=== PATIENT | female | born 1970 | race Hispanic/Latino ===

== ENCOUNTER 2018-12-28 14:14 | Inpatient (IN) | payer BC ==
[2018-12-28 14:32] VITALS: BMI 26.8
--- NOTE | 2018-12-28 14:33 | C.PDOC ---
History Of Present Illness 48 year old female presents to the ED for evaluation of chest pressure which began while at work prior to arrival. Patient describes a midsternal heaviness. She received Nitroglycerin and Aspirin prior to arrival, with improvement in her symptoms. Patient denies fever, chills or history of previous stress test. Patient admits to social history of smoking. Time Seen by Provider: 12/28/18 14:15 Chief Complaint (Nursing): Chest Pain History Per: Patient History/Exam Limitations: no limitations Onset/Duration Of Symptoms: Hrs Current Symptoms Are (Timing): Still Present Quality: Pressure, "Pain" Additional History Per: Patient Past Medical History Reviewed: Historical Data, Nursing Documentation, Vital Signs - Medical History PMH: No Chronic Diseases Surgical History: No Surg Hx Family History: States: Unknown Family Hx - Social History Hx Tobacco Use: Yes Hx Alcohol Use: Yes Hx Substance Use: No - Immunization History Hx Tetanus Toxoid Vaccination: No Hx Influenza Vaccination: No Hx Pneumococcal Vaccination: No Review Of Systems Constitutional: Negative for: Fever, Chills Cardiovascular: Positive for: Other (chest pressure, mid-sternal heaviness ) Physical Exam - Physical Exam Appears: Non-toxic, No Acute Distress Skin: Normal Color, Warm, Dry Head: Atraumatic, Normacephalic Eye(s): bilateral: Normal Inspection Oral Mucosa: Moist Neck: Supple Chest: Symmetrical, No Deformity, No Tenderness Cardiovascular: Rhythm Regular, No Murmur Respiratory: Normal Breath Sounds, No Rales, No Rhonchi, No Wheezing Extremity: Normal ROM, Capillary Refill (less than 2 seconds ) Neurological/Psych: Oriented x3, Normal Speech, Normal Cognition ED Course And Treatment - Laboratory Results Result Diagrams: 12/28/18 14:33 12/28/18 14:33 ECG: Interpreted By Me, Viewed By Me ECG Rhythm: Sinus Rhythm Interpretation Of ECG: ST elevation in lateral leads, reciprocal depressions. Rate From EC O2 Sat by Pulse Oximetry: 99 (on RA) Pulse Ox Interpretation: Normal Medical Decision Making Medical Decision Making: Progress: Bloodwork, urinalysis, CXR, EKG ordered and reviewed. Brilinta PO and Heparin IVP given. ems ekg ?lateral stemi with reciprocal changes. ekgs sent to dr alfaro. requests code heart activation. 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 brilinta and heparin iniated. Disposition - Disposition Disposition: HOSPITALIZED Disposition Time: 16:00 Condition: STABLE - Clinical Impression Clinical Impression: STEMI (ST elevation myocardial infarction) - Scribe Statement The provider has reviewed the documentation as recorded by the Scribe (Melani Mercer) Provider Attestation: All medical record entries made by the Scribe were at my direction and personally dictated by me. I have reviewed the chart and agree that the record accurately reflects my personal performance of the history, physical exam, medical decision making, and the department course for this patient. I have also personally directed, reviewed, and agree with the discharge instructions and di sposition. Decision To Admit - Pt Status Changed To: Hospital Disposition Of: Inpatient - Admit Certification Admit to Inpatient:: After my assessment, the patient will require hospit alization for at least two midnights. This is because of the severity of symptoms shown, intensity of services needed, and/or the medical risk in this patient being treated as an outpatient. - InPatient: Physician Admission Certification: I certify that this patient requires 2 or more midnights of care for the following reason:: stemi needs cath - . Bed Request Type: ICU Admitting Physician: Carlos Manuel Alfaro Patient Diagnosis: STEMI (ST elevation myocardial infarction)
[2018-12-28 14:37] LABS: BASO % 0.5 % (0.0-2.0); EOS # 0.2 K/uL (0.0-0.7); EOS % 2.3 % (0.0-4.0); LYMPH % 24.4 % (20.0-40.0); MEAN CELL VOLUME 93.4 fL (81.0-99.0); MEAN CORPUSCULAR HEMOGLOBIN 30.9 pg (27.0-31.0); MEAN CORPUSCULAR HGB CONC 33.1 g/dL (33.0-37.0); MEAN PLATELET VOLUME 8.6 fL (7.2-11.7); MONO # 0.7 K/uL (0.0-0.8); MONO % 8.6 % (0.0-10.0); NEUT # 5.2 K/uL (1.8-7.0); NEUT % 64.2 % (50.0-75.0); RBC 4.53 Mil/uL (3.80-5.20); RED CELL DISTRIBUTION WIDTH 12.9 % (11.5-14.5); WHITE BLOOD COUNT 8.1 K/uL (4.8-10.8)
--- NOTE | 2018-12-28 14:42 | RAD ---
Date of service: 12/28/2018 PROCEDURE: CHEST RADIOGRAPH, 1 VIEW HISTORY: chest pain COMPARISON: None available. FINDINGS: LUNGS: The lungs are well inflated and clear. PLEURA: No pneumothorax or pleural effusion. CARDIOVASCULAR: The heart is normal in size. No aortic atherosclerotic calcifications present. OSSEOUS STRUCTURES: Within normal limits for the patient's age. VISUALIZED UPPER ABDOMEN: Normal. OTHER FINDINGS: None. IMPRESSION: No active pulmonary disease.
[2018-12-28 14:46] LABS: PROTHROMBIN TIME 11.2 SECONDS (9.7-12.2)
[2018-12-28] MEDS ORDERED: Iodixanol 320 MG/ML 200 ML BOTTLE IV ONE (14:48)
[2018-12-28] MEDS ORDERED: Midazolam 2 MG/2 ML VIAL ONE (15:11)
--- NOTE | 2018-12-28 15:12 | CP.PCM.CON ---
<José Miguel Navarro - Last Filed: 12/28/18 20:10> History of Present Illness - History of Present Illness History of Present Illness: ICU Consult Note for Dr. Conn This is a 48 y o female with no remarkable PMhx who presented as [facility] for eval of chest pressure which began while she was at work this am. Denies any inciting factors, states she was only stressed about typical things at work. Described pain as "heaviness", localized to the mid-sternum. States that this is the first time she has ever had symptoms like this before. Denies prior hx of NM or TIA/stroke. Denied at time fever, chills, sob, n/v/d/c, abd pain, urinary complaints, or other symptoms. Reason for ICU consult was for monitoring post- cardiac cath procedure. Cardiac cath performed by Dr. Ybarra demonstrated clean coronary arteries, recommends medical management. Pt denies any symptoms currently, states chest pain has resolved completely. PMhx: none PSurgHx: C/s x1 Allergies: NKDA Home meds: none Fam hx: Hx heart disease in mom and dad Soc hx: Quit smoking 17 y ago, uses E-cigarettes daily. Admits to drinking 2 glasses/wine daily. Denies illicit drug use. Review of Systems - Constitutional Constitutional: absent: Chills, Fatigue, Fever - Cardiovascular Cardiovascular: absent: Chest Pain, Diaphoresis, Dyspnea on Exertion, Pain Radiating to Arm/Neck/Jaw, Leg Edema, Palpitations, Pedal Edema, Syncope - Respiratory Respiratory: absent: Cough, Wheezing - Gastrointestinal Gastrointestinal: absent: Abdominal Pain, Constipation, Diarrhea, Nausea, Vomiting - Genitourinary Genitourinary: absent: Difficulty Urinating, Dysuria Past Patient History - Infectious Disease Hx of Infectious Diseases: None - Past Social History Smoking Status: vape - PSYCHIATRIC Hx Substance Use: No - ANESTHESIA Hx Anesthesia: No Meds Allergies/Adverse Reactions: Allergies Allergy/AdvReac Type Severity Reaction Status Date / Time No Known Allergies Allergy Verified 12/28/18 14:23 Physical Exam - Constitutional Appears: Non-toxic, No Acute Distress - Head Exam Head Exam: ATRAUMATIC, NORMOCEPHALIC - Eye Exam Eye Exam: EOMI, Normal appearance, PERRL - ENT Exam ENT Exam: Mucous Membranes Moist - Respiratory Exam Respiratory Exam: Clear to Auscultation Bilateral, NORMAL BREATHING PATTERN. absent: Rales, Rhonchi, Wheezes - Cardiovascular Exam Cardiovascular Exam: REGULAR RHYTHM, +S1, +S2. absent: Gallop, Rubs, Systolic Murmur - GI/Abdominal Exam GI & Abdominal Exam: Normal Bowel Sounds, Soft. absent: Distended, Organomegaly, Tenderness - Extremities Exam Extremities exam: Positive for: full ROM, normal capillary refill, normal inspection, pedal pulses present. Negative for: pedal edema Additional comments: Catheter site in R groin c/d/i, no active bleeding noted - Neurological Exam Neurological exam: Alert, CN II-XII Intact, Oriented x3 - Skin Skin Exam: Dry, Intact, Warm Results - Vital Signs Recent Vital Signs: Last Vital Signs Temp 97.9 F 12/28/18 14:42 Pulse 64 12/28/18 14:42 Resp 18 12/28/18 14:42 BP 192/84 H 12/28/18 14:42 Pulse Ox 99 12/28/18 14:42 - Labs Result Diagrams: 12/28/18 14:33 12/28/18 14:33 Labs: Laboratory Results - last 24 hr 12/28/18 12/28/18 12/28/18 14:33 14:33 14:33 WBC 8.1 RBC 4.53 Hgb 14.0 Hct 42.3 MCV 93.4 MCH 30.9 MCHC 33.1 RDW 12.9 Plt Count 299 MPV 8.6 Neut % (Auto) 64.2 Lymph % (Auto) 24.4 [place] % (Auto) 8.6 Eos % (Auto) 2.3 Baso % (Auto) 0.5 Neut # (Auto) 5.2 Lymph # (Auto) 2.0 [place] # (Auto) 0.7 Eos # (Auto) 0.2 Baso # (Auto) 0.0 PT 11.2 INR 1.0 APTT 27 Troponin I 0.1120 Assessment & Plan - Assessment and Plan (Free Text) Assessment: This is a 48 y o female with no remarkable PMhx who presented as [facility] for eval of chest pressure which began while she was at work this am. Reason for ICU consult was for monitoring post-cardiac cath procedure. Cardiac cath performed by Dr. Ybarra demonstrated clean coronary arteries, recommends medical management. Plan: -EMS EKG was reported as ?lateral STEMI, reviewed by Dr. Ybarra, who proceeded to activate [facility]. Pt s/p cath today that demonstrated clean coronary arterties. Hypertensive otherwise hemodynamically stable -Pt does not meet criteria for ICU admission at this time -ASA, Enalapril added for medical management of STEMI/angina -Further recommendations as per Cardiology and primary team -Please reconsult if needed Pt seen, examined with, and plan discussed with Dr. Conn, attending physician. José Miguel Navarro DO PGY-1, Certified Indoor Environmentalist Pager #[phone] <José Miguel Conn - Last Filed: 12/29/18 16:47> Results - Vital Signs Recent Vital Signs: Last Vital Signs Temp 98.2 F 12/29/18 12:00 Pulse 93 H 12/29/18 13:33 Resp 14 12/29/18 13:33 BP 130/53 L 12/29/18 14:19 Pulse Ox 100 12/29/18 13:30 - Labs Result Diagrams: 12/29/18 06:25 12/29/18 06:20 Labs: Laboratory Results - last 24 hr 12/29/18 12/29/18 12/29/18 06:20 06:25 06:25 WBC 8.8 RBC 4.25 Hgb 13.0 Hct 38.6 MCV 90.9 D MCH 30.5 MCHC 33.6 RDW 12.6 Plt Count 285 MPV 8.9 Neut % (Auto) 73.6 Lymph % (Auto) 15.0 L [place] % (Auto) 9.3 Eos % (Auto) 1.7 Baso % (Auto) 0.4 Neut # (Auto) 6.5 Lymph # (Auto) 1.3 [place] # (Auto) 0.8 Eos # (Auto) 0.1 Baso # (Auto) 0.0 Sodium 135 Potassium 4.1 Chloride 102 Carbon Dioxide 27 Anion Gap 10 BUN 11 Creatinine 0.7 Est GFR ( Amer) > 60 Est GFR (Non-Af Amer) > 60 Random Glucose 83 D Hemoglobin A1c 5.0 Calcium 8.9 Phosphorus 3.4 Magnesium 1.9 Total Bilirubin 0.8 AST 50 H D ALT 9 Alkaline Phosphatase 55 Total Protein 6.4 Albumin 4.1 Globulin 2.3 Albumin/Globulin Ratio 1.8 Triglycerides 75 Cholesterol 173 LDL Cholesterol Direct 85 HDL Cholesterol 84 H Attending/Attestation - Attestation I have personally seen and examined this patient.: Yes I have fully participated in the care of the patient.: Yes I have reviewed all pertinent clinical information: Yes Notes (Text): 12/28/18 16:46 I have seen and examined the patient. Medical records, lab studies, and imaging were reviewed by me and a management plan was formulated on multidisciplinary rounds with resident Dr. Navarro. I agree with their documented assessment and plan. Patient was clinically stable and chest pain free, s/p cardiac cath which found no CAD. Her chest pain may have been related to her uncontrolled hypertension. Started on enalapril. Clinically stable for downgrade to telemetry floors. Critical Care Time 35 minutes. Multi-disciplinary rounds were performed with house staff, nursing, speech therapy, respiratory therapy, pharmacy and nutrition with integrated input from the primary team/attending and other consulting services. The documented time is cumulative and includes review of patient data/exams/labs/chart review and examination of the patient on rounds and throughout the day; time is exclusive of any procedures or teaching time.
[2018-12-28 15:14] LABS: ALBUMIN 4.7 g/dL (3.5-5.0); ALT/SGPT 9 U/L (9-52); AST/SGOT 36 U/L (14-36); B-TYPE NATRIURETIC PEPTIDE 87.8 pg/mL (0-900); BLOOD UREA NITROGEN 15 mg/dL (7-17); CALCIUM 9.6 mg/dl (8.6-10.4); GFR NON-AFRICAN AMERICAN > 60
[2018-12-28] MEDS ORDERED: Labetalol 5mg/ml (4ml) ONE (15:15)
[2018-12-28] MEDS ORDERED: Iodixanol 320 MG/ML 100 ML BOTTLE IV ONE (15:20)
--- NOTE | 2018-12-28 19:37 | CP.PCM.HP ---
History of Present Illness - History of Present Illness History of Present Illness: 48 years old woman with no previous cardiac history, developed retrosternal chest pain. Presented to [facility] ER EKG shows normal sinus rhythm with no any ST-T changes. 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 There is no history of hypertension hypercholesterolemia in the past Present on Admission - Present on Admission Any Indicators Present on Admission: No Review of Systems - Review of Systems All systems: reviewed and no additional remarkable complaints except (atypical retrosternal chest pain) Past Patient History - Infectious Disease Hx of Infectious Diseases: None - Past Medical History & Family History Past Medical History?: No - Past Social History Smoking Status: Former Smoker - MUSCULOSKELETAL/RHEUMATOLOGICAL Hx Falls: No - PSYCHIATRIC Hx Substance Use: No - SURGICAL HISTORY Hx Surgeries: Yes Hx Section: Yes - ANESTHESIA Hx Anesthesia: Yes Hx Anesthesia Reactions: No Meds Allergies/Adverse Reactions: Allergies Allergy/AdvReac Type Severity Reaction Status Date / Time No Known Allergies Allergy Verified 12/28/18 14:23 Physical Exam - Constitutional Appears: Well - Head Exam Head Exam: ATRAUMATIC, NORMAL INSPECTION, NORMOCEPHALIC - Eye Exam Eye Exam: EOMI, Normal appearance, PERRL - Neck Exam Neck exam: Positive for: Normal Inspection - Respiratory Exam Respiratory Exam: Clear to Auscultation Bilateral, NORMAL BREATHING PATTERN - Cardiovascular Exam Cardiovascular Exam: REGULAR RHYTHM - GI/Abdominal Exam GI & Abdominal Exam: Normal Bowel Sounds, Soft. absent: Tenderness - Extremities Exam Extremities exam: Positive for: normal inspection - Neurological Exam Neurological exam: Alert, CN II-XII Intact, Normal Gait, Oriented x3, Reflexes Normal Results - Vital Signs Recent Vital Signs: Last Vital Signs Temp 97.9 F 12/28/18 14:42 Pulse 61 12/28/18 18:40 Resp 13 12/28/18 18:40 BP 128/89 12/28/18 18:31 Pulse Ox 100 12/28/18 18:40 - Labs Result Diagrams: 12/29/18 06:25 12/29/18 06:20 Labs: Laboratory Results - last 24 hr 12/28/18 12/28/18 12/28/18 14:33 14:33 14:33 WBC 8.1 RBC 4.53 Hgb 14.0 Hct 42.3 MCV 93.4 MCH 30.9 MCHC 33.1 RDW 12.9 Plt Count 299 MPV 8.6 Neut % (Auto) 64.2 Lymph % (Auto) 24.4 [place] % (Auto) 8.6 Eos % (Auto) 2.3 Baso % (Auto) 0.5 Neut # (Auto) 5.2 Lymph # (Auto) 2.0 [place] # (Auto) 0.7 Eos # (Auto) 0.2 Baso # (Auto) 0.0 PT 11.2 INR 1.0 APTT 27 Sodium 136 Potassium 4.2 Chloride 102 Carbon Dioxide 24 Anion Gap 14 BUN 15 Creatinine 0.8 Est GFR ( Amer) > 60 Est GFR (Non-Af Amer) > 60 Random Glucose 106 H Calcium 9.6 Total Bilirubin 0.5 AST 36 ALT 9 Alkaline Phosphatase 72 Troponin I 0.1120 NT-Pro-B Natriuret Pep 87.8 Total Protein 7.0 Albumin 4.7 Globulin 2.3 Albumin/Globulin Ratio 2.0 Assessment & Plan (1) Atypical chest pain Status: Acute
--- NOTE | 2018-12-28 21:24 | CATH ---
APPROVED REPORT Date of service: 12/28/2018 Procedure(s) performed: Cardiac catheterization. HISTORY The patient is a 48 year-old female with a history of : hypertension. INDICATION The indication(s) include : atypical chest pain , abnormal ECG. CASE TECHNIQUE The patient was brought emergently to the Cardiac Catheterization Laboratory in a fasting state and was prepped and draped in a sterile manner. The right femoral groin was infiltrated with 2% Lidocaine subcutaneous anesthesia. A 6 F sheath was inserted into the right femoral artery without difficulty. Coronary angiography was performed using coronary diagnostic catheters. The left coronary system was accessed and visualized with a 6 F XB3.0 catheter. The right coronary system was accessed and visualized with a Diagnostic catheter. The left ventricle was accessed and visualized with a 6 F Pig tail. catheter. Left ventriculogram was performed in PAINTING projection. Closure device was deployed with a 6 Fr Angioseal without any complications. The patient tolerated the procedure well and there were no complications associated with the procedure. Vessel Analysis The patient's coronary anatomy is left dominant. The left main coronary artery is a medium size vessel with intimal irregularities and without significant stenosis. There is a 0% stenosis . The left main bifurcates to the left anterior descending and circumflex. The left anterior descending artery is a medium size vessel without significant stenosis. The circumflex artery is a medium size vessel without significant stenosis. The right coronary artery is a medium size vessel with intimal irregularities and without significant stenosis. Left Ventricle The left ventricle is normal in size with normal contractility. The left ventricular ejection fraction is estimated to be 60%. The left ventricular end diastolic pressure is 24 mmHg. There was no gradient across the aortic valve upon pullback. Conclusion Normal very tortuous coronaries. Normal LV systolic function. Recommendations Cardiac Risk Reduction Program
[2018-12-28] MEDS: Sodium Chloride 0.45% 250 ML IV SCH (21:30)
[2018-12-29] MEDS: Sodium Chloride 0.45% 250 ML IV SCH (05:33)
[2018-12-29 06:35] LABS: BASO % 0.4 % (0.0-2.0); EOS # 0.1 K/uL (0.0-0.7); EOS % 1.7 % (0.0-4.0); LYMPH # 1.3 K/uL (1.0-4.3); MEAN CELL VOLUME 90.9 fL (81.0-99.0); MEAN CORPUSCULAR HEMOGLOBIN 30.5 pg (27.0-31.0); MEAN CORPUSCULAR HGB CONC 33.6 g/dL (33.0-37.0); MEAN PLATELET VOLUME 8.9 fL (7.2-11.7); MONO # 0.8 K/uL (0.0-0.8); MONO % 9.3 % (0.0-10.0); NEUT # 6.5 K/uL (1.8-7.0); NEUT % 73.6 % (50.0-75.0); NRBC % 0.1 % (0.0-2.0); RBC 4.25 Mil/uL (3.80-5.20); RED CELL DISTRIBUTION WIDTH 12.6 % (11.5-14.5); WHITE BLOOD COUNT 8.8 K/uL (4.8-10.8)
[2018-12-29 06:51] LABS: LDL CHOLESTEROL 85 mg/dL (0-129)
[2018-12-29 06:52] LABS: ALB/GLOB RATIO 1.8 (1.0-2.1); ALBUMIN 4.1 g/dL (3.5-5.0); ALT/SGPT 9 U/L (9-52); AST/SGOT 50 U/L (14-36); BLOOD UREA NITROGEN 11 mg/dL (7-17); CALCIUM 8.9 mg/dl (8.6-10.4); GFR NON-AFRICAN AMERICAN > 60; HDL CHOLESTEROL 84 mg/dL (30-70)
[2018-12-29 12:16] VITALS: RESP 14
--- NOTE | 2018-12-29 13:54 | CP.PCM.DIS ---
Provider - Provider Date of Admission: 12/28/18 14:37 Attending physician: Rosie Gregory MD Consults: 12/28/18 18:18 Cardiology Consult Routine Comment: Consulting Provider: Carlos Manuel Ybarra Consulting Physician: Carlos Manuel Ybarra Reason for Consult: [facility] Time Spent in preparation of Discharge (in minutes): 35 Diagnosis - Discharge Diagnosis (1) Atypical chest pain Status: Acute Hospital Course - Lab Results Lab Results: Most Recent Lab Values WBC 8.8 K/uL (4.8-10.8) 12/29/18 06:25 RBC 4.25 Mil/uL (3.80-5.20) 12/29/18 06:25 Hgb 13.0 g/dL (11.0-16.0) 12/29/18 06:25 Hct 38.6 % (34.0-47.0) 12/29/18 06:25 MCV 90.9 fL (81.0-99.0) D 12/29/18 06:25 MCH 30.5 pg (27.0-31.0) 12/29/18 06:25 MCHC 33.6 g/dL (33.0-37.0) 12/29/18 06:25 RDW 12.6 % (11.5-14.5) 12/29/18 06:25 Plt Count 285 K/uL (130-400) 12/29/18 06:25 MPV 8.9 fL (7.2-11.7) 12/29/18 06:25 Neut % (Auto) 73.6 % (50.0-75.0) 12/29/18 06:25 Lymph % (Auto) 15.0 % (20.0-40.0) L 12/29/18 06:25 [place] % (Auto) 9.3 % (0.0-10.0) 12/29/18 06:25 Eos % (Auto) 1.7 % (0.0-4.0) 12/29/18 06:25 Baso % (Auto) 0.4 % (0.0-2.0) 12/29/18 06:25 Neut # (Auto) 6.5 K/uL (1.8-7.0) 12/29/18 06:25 Lymph # (Auto) 1.3 K/uL (1.0-4.3) 12/29/18 06:25 [place] # (Auto) 0.8 K/uL (0.0-0.8) 12/29/18 06:25 Eos # (Auto) 0.1 K/uL (0.0-0.7) 12/29/18 06:25 Baso # (Auto) 0.0 K/uL (0.0-0.2) 12/29/18 06:25 PT 11.2 SECONDS (9.7-12.2) 12/28/18 14:33 INR 1.0 12/28/18 14:33 APTT 27 SECONDS (21-34) 12/28/18 14:33 Sodium 135 mmol/L (132-148) 12/29/18 06:20 Potassium 4.1 mmol/L (3.6-5.2) 12/29/18 06:20 Chloride 102 mmol/L (98-107) 12/29/18 06:20 Carbon Dioxide 27 mmol/L (22-30) 12/29/18 06:20 Anion Gap 10 (10-20) 12/29/18 06:20 BUN 11 mg/dL (7-17) 12/29/18 06:20 Creatinine 0.7 mg/dL (0.7-1.2) 12/29/18 06:20 Est GFR ( Amer) > 60 12/29/18 06:20 Est GFR (Non-Af Amer) > 60 12/29/18 06:20 Random Glucose 83 mg/dL (65-105) D 12/29/18 06:20 Hemoglobin A1c 5.0 % (4.2-6.5) 12/29/18 06:25 Calcium 8.9 mg/dl (8.6-10.4) 12/29/18 06:20 Phosphorus 3.4 mg/dL (2.5-4.5) 12/29/18 06:20 Magnesium 1.9 mg/dL (1.6-2.3) 12/29/18 06:20 Total Bilirubin 0.8 mg/dL (0.2-1.3) 12/29/18 06:20 AST 50 U/L (14-36) H D 12/29/18 06:20 ALT 9 U/L (9-52) 12/29/18 06:20 Alkaline Phosphatase 55 U/L (38-126) 12/29/18 06:20 Troponin I 0.1120 ng/mL (0.00-0.120) 12/28/18 14:33 NT-Pro-B Natriuret Pep 87.8 pg/mL (0-900) 12/28/18 14:33 Total Protein 6.4 g/dL (6.3-8.3) 12/29/18 06:20 Albumin 4.1 g/dL (3.5-5.0) 12/29/18 06:20 Globulin 2.3 gm/dL (2.2-3.9) 12/29/18 06:20 Albumin/Globulin Ratio 1.8 (1.0-2.1) 12/29/18 06:20 Triglycerides 75 mg/dL (0-149) 12/29/18 06:20 Cholesterol 173 mg/dL (0-199) 12/29/18 06:20 LDL Cholesterol Direct 85 mg/dL (0-129) 12/29/18 06:20 HDL Cholesterol 84 mg/dL (30-70) H 12/29/18 06:20 - Hospital Course Hospital Course: 48 years old white woman admitted with atypical chest pain underwent "heart cardiac catheterization showed normal coronaries and normal left ejection fraction. Currently patient is stable We will discharge the patient on short-term beta-sylvia reevaluate in the office and plan further. Discharge Exam - Head Exam Head Exam: ATRAUMATIC, NORMAL INSPECTION, NORMOCEPHALIC Discharge Plan - Follow Up Plan Condition: STABLE Disposition: HOME/ ROUTINE
--- NOTE | 2018-12-29 14:41 | CP.PCM.PN ---
Subjective - Date & Time of Evaluation Date of Evaluation: 12/29/18 Time of Evaluation: 14:40 - Subjective Subjective: PATIENT SEEN AND EXAMINED AT THE BEDSIDE Objective - Vital Signs/Intake and Output Vital Signs (last 24 hours): Temp Pulse Resp BP Pulse Ox 98.1 F 66 14 124/72 96 12/29/18 08:00 12/29/18 12:10 12/29/18 12:10 12/29/18 09:37 12/29/18 12:10 Intake and Output: 12/29/18 12/29/18 06:59 18:59 Intake Total 650 Balance 650 - Medications Medications: Current Medications Aspirin (Aspirin Chewable) 81 mg PO DAILY [facility] Last Admin: 12/29/18 09:37 Dose: 81 mg Enalapril Maleate (Vasotec) 2.5 mg PO DAILY [facility] Last Admin: 12/29/18 09:37 Dose: 2.5 mg Sodium Chloride (Sodium Chloride 0.45%) 250 mls @ 50 mls/hr IV .Q5H [facility] Last Admin: 12/29/18 05:33 Dose: Not Given - Labs Labs: 12/29/18 06:25 12/29/18 06:20 PT 11.2 SECONDS (9.7-12.2) 12/28/18 14:33 INR 1.0 12/28/18 14:33 APTT 27 SECONDS (21-34) 12/28/18 14:33 Assessment and Plan - Assessment and Plan (Free Text) Assessment: FOLLOW UP WITH DR STEPHENSON IN HIS OFFICE -----CALL FOR APPOINTMENT CONTINUE HOME MEDICATION NEW PRESCRIPTION GIVEN ASPIRIN 81 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
[2018-12-29 15:06] VITALS: BP 130/53; PULSE 93; O2SAT 100
[2018-12-29 15:07] VITALS: TEMP 98.2
--- NOTE | 2018-12-31 20:10 | CARD ---
APPROVED REPORT Date of service: 12/28/2018 EKG Measurement Heart [id number] <Conclusion> Normal sinus rhythm Normal ECG
== END 2018-12-29 15:00 | disposition home or self-care (01) | DRG 313 ==
LOC: C.ER 14:14 → C.9E 14:37 → C.9I 15:47
PROVIDERS: ADMIT Internal Medicine Cardiovascular Disease; ATTEND Internal Medicine Cardiovascular Disease
DX: R07.89 Other chest pain (principal); I10 Essential (primary) hypertension; R94.31 Abnormal electrocardiogram [ECG] [EKG]; Z87.891 Personal history of nicotine dependence; Z98.891 History of uterine scar from previous surgery; Z79.82 Long term (current) use of aspirin